=== PATIENT | female | born 1935 ===

== ENCOUNTER 2017-06-11 16:38 | Emergency (ER) | payer MEDICARE, MEDICAID ==
[2017-06-11 17:07] VITALS: BP 149/74
--- NOTE | 2017-06-11 17:32 | UC ---
Lower Extremity/Ankle HPI - HPI Summary HPI Summary: Patient hit the right great toe on a piece of furniture 2 days ago. she is having trouble putting weight on it and it is swollen - History of Current Complaint Chief Complaint: UCLowerExtremity Stated Complaint: RIGHT GREAT TOE INJURY Time Seen by Provider: 06/11/17 17:03 Hx Obtained From: Patient ?: No Onset/Duration: Sudden Onset, Lasting Days Severity Initially: Severe Severity Currently: Moderate Aggravating Factor(s): Standing, Ambulation Alleviating Factor(s): Rest Able to Bear Weight: No - Allergies/Home Medications Allergies/Adverse Reactions: Allergies Allergy/AdvReac Type Severity Reaction Status Date / Time No Known Allergies Allergy Verified 06/11/17 16:58 Home Medications: Home Medications Aspirin Low Dose CHEW TAB* [Aspirin Low Dose TAB*] 81 mg PO DAILY 06/11/17 [ History Confirmed 06/11/17] Glipizide [Glipizide ER] 2.5 mg PO DAILY 06/11/17 [History Confirmed 06/11/17] Ibuprofen TAB* [Advil TAB*] 400 mg PO Q6H PRN 06/11/17 [History Confirmed ] Simvastatin TAB(NF) [Zocor(NF)] 20 mg PO 1700 06/11/17 [History Confirmed ] PMH/Surg Hx/FS Hx/Imm Hx Previously Healthy: Yes - Surgical History Surgical History: None - Family History Known Family History: Positive: Cardiac Disease, Hypertension - Social History Alcohol Use: None Substance Use Type: None Smoking Status (MU): Never Smoked Tobacco Review of Systems Constitutional: Negative Skin: Negative Eyes: Negative ENT: Negative Respiratory: Negative Cardiovascular: Negative Gastrointestinal: Negative Genitourinary: Negative Motor: Negative Neurovascular: Negative Musculoskeletal: Arthralgia, Decreased ROM, Edema - right great toe Neurological: Negative Psychological: Negative All Other Systems Reviewed And Are Negative: Yes Physical Exam Triage Information Reviewed: Yes Appearance: Well-Appearing, Well-Nourished, Pain Distress Vital Signs: Initial Vital Signs Temp 99.1 F 06/11/17 17:00 Pulse 86 06/11/17 17:00 Resp 18 06/11/17 17:00 BP 149/74 06/11/17 17:00 Pulse Ox 97 06/11/17 17:00 Vital Signs Reviewed: Yes Eye Exam: Normal ENT Exam: Normal Dental Exam: Normal Neck exam: Normal Respiratory Exam: Normal Cardiovascular Exam: Normal Abdominal Exam: Normal Bowel Sounds: Positive: Present Musculoskeletal: Positive: Strength Limited @, ROM Limited @, Edema @ - in the right great toe Neurological Exam: Normal Neurological: Positive: Alert, Muscle Tone Normal Psychological Exam: Normal Skin Exam: Normal Lower Extremity Course/Dx - Course Course Of Treatment: hx obtained, exam performed ,meds reviewed, xray obtained no fracture - Differential Dx/Diagnosis Differential Diagnosis/HQI/PQRI: Fracture (Closed), Gout, Infection, Sprain, Strain Provider Diagnoses: toe contusion Discharge - Discharge Plan Condition: Stable Disposition: HOME Patient Education Materials: Foot Contusion (ED) Referrals: Denise Waldron MD [Primary Care Provider] - Additional Instructions: 1. wear post op shoe keep foot elevated warm foot soaks
--- NOTE | 2017-06-11 17:51 | RAD ---
INDICATION: Great toe injury COMPARISON: None TECHNIQUE: AP, lateral, and oblique views were obtained. FINDINGS: There is no acute fracture. 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 There is a hallux valgus deformity. There is soft tissue swelling about the first MTP joint. IMPRESSION: DEGENERATIVE CHANGES AND SOFT TISSUE SWELLING ABOUT THE FIRST MTP JOINT
== END 2017-06-11 18:48 | disposition home or self-care (01) ==
LOC: UCCORT 16:38
DX: S90.111A Contusion of right great toe without damage to nail, initial encounter (principal); W22.8XXA Striking against or struck by other objects, initial encounter; Y92.9 Unspecified place or not applicable
CPT/HCPCS: 99203; G0463